=== PATIENT | female | born 1985 | race Caucasian/White ===

== ENCOUNTER 2018-06-02 04:56 | Inpatient (IN) | payer BC ==
[2018-06-02] MEDS: DEXTROSE 5%-LACTATED RINGERS 1,000 ML IV SCH (06:00)
[2018-06-02] MEDS ORDERED: AMPICILLIN - 2 GM in SODIUM CHLORIDE 100 ML IVPB ONE (06:00)
[2018-06-02 06:33] VITALS: BMI 30.4
[2018-06-02 06:41] LABS: BASO % 0.3 % (0-2.0); EOS % 1.9 % (0-4.5); HEMOGLOBIN 10.6 GM/dL (10.7-15.3); LYMPH % 20.2 % (8-40); MCH 25.3 pg (25.7-33.7); MCHC 33.2 g/dl (32.0-36.0); MEAN CELL VOLUME 76.1 fl (80-96); MEAN PLT VOLUME 9.5 fl (7.5-11.1); MONO % 7.1 % (3.8-10.2); NEUT % 70.5 % (42.8-82.8); PLATELET COUNT 257 K/MM3 (134-434); RBC 4.21 M/mm3 (3.60-5.2); RDW 15.4 % (11.6-15.6); WHITE BLOOD COUNT 9.7 K/mm3 (4.0-10.0)
[2018-06-02] MEDS ORDERED: BUTORPHANOL TARTRATE 1 MG/ML VIAL IVPUSH PRN (06:47)
[2018-06-02] MEDS ORDERED: PROMETHAZINE HCL 25 MG/1 ML VIAL IVPUSH PRN (06:48)
[2018-06-02 06:56] LABS: INR 1.03 (0.83-1.09); PROTHROMBIN TIME (PATIENT) 12.1 SEC (9.7-13.0)
[2018-06-02 06:58] LABS: ACTIVATED PTT 26.1 SECONDS (25.2-36.5)
[2018-06-02 07:01] LABS: ANION GAP 8 MMOL/L (8-16); BLOOD UREA NITROGEN 9 mg/dL (7-18); CALCIUM 8.4 mg/dL (8.5-10.1); CHLORIDE 104 mmol/L (98-107); CO2 24 mmol/L (21-32); CREATININE 0.6 mg/dL (0.55-1.3); GLUCOSE,RANDOM 74 mg/dL (74-106); POTASSIUM 4.1 mmol/L (3.5-5.1); SODIUM 137 mmol/L (136-145)
[2018-06-02] MEDS ORDERED: NALOXONE HCL 0.4 MG/ML VIAL IVPUSH PRN (07:49)
--- NOTE | 2018-06-02 07:49 | HP ---
Past Medical History - Primary Care Physician PCP:: Zhang Amaya - Admission Chief Complaint: 38.6 weeks, rom, labor History of Present Illness: 32 yo f ,38.6 weeks, c/o rom since 4 am today , has contraction since 5 am , cx 3 cm, 80 vx . -1 , mr Baldo jay , fhr cat 1, contraction irregular History Source: Patient Limitations to Obtaining History: No Limitations - Past Medical History ...: 3 ...Para: 1 ...Term: 1 ...: 0 ...Spon : 0 ...Induced : 1 ...LMP: 09/03/17 ... Weeks Gestation by Dates: 38.6 ...EDC by Dates: 06/10/18 ...EDC by Sono: 06/12/18 - Past Surgical History Hx Myomectomy: No Hx Transabdominal Cerclage: No - Smoking History Smoking history: Never smoked - Alcohol/Substance Use Hx Alcohol Use: No - Social History Usual Living Arrangement: Yes: With Spouse History of Recent Travel: No Home Medications - Allergies Allergies/Adverse Reactions: Allergies Allergy/AdvReac Type Severity Reaction Status Date / Time No Known Allergies Allergy Verified 06/02/18 06:16 - Home Medications Home Medications: Ambulatory Orders Vitamins (Sjr) - 1 tab PO DAILY 06/02/18 Review of Systems - Review of Systems Constitutional: reports: No Symptoms Eyes: reports: No Symptoms HENT: reports: No Symptoms Neck: reports: No Symptoms Cardiovascular: reports: No Symptoms Respiratory: reports: No Symptoms Gastrointestinal: reports: No Symptoms Genitourinary: reports: No Symptoms Breasts: reports: No Symptoms Reported Musculoskeletal: reports: No Symptoms Integumentary: reports: No Symptoms Neurological: reports: No Symptoms Endocrine: reports: No Symptoms Hematology/Lymphatic: reports: No Symptoms Psychiatric: reports: No Symptoms Physical Exam - Maternity Vital Signs: Vital Signs Temperature 97.8 F 06/02/18 07:00 Pulse Rate 89 06/02/18 07:00 Respiratory Rate 20 06/02/18 07:00 Blood Pressure 112/68 06/02/18 07:00 O2 Sat by Pulse Oximetry (%) Constitutional: Yes: Well Nourished, No Distress, Calm Eyes: Yes: WNL, Conjunctiva Clear, EOM Intact HENT: Yes: WNL, Atraumatic, Normocephalic Neck: Yes: WNL, Supple, Trachea Midline Cardiovascular: Yes: WNL, Regular Rate and Rhythm Breast(s): Yes: WNL - Abdominal Exam/OB Fundal Height: 38 Number of Fetuses: Single Presentation: Vertex Contractions: Yes Regularity: Irregular Intensity: Mod/Strong Monitor Mode: External Heart Rate Location: [facility] Category: I Accelerations: Uniform Decelerations: None - Vaginal Exam/OB Vaginal Bleediing: No Speculum Exam: No Dilatation (cm): 3 cm Effacement (%): 80 Amniotic Membrane Status: Ruptured Nitrazine Test: Positive Presentation: Vertex/Position Station: -1 - Physical Exam Musculoskeletal: Yes: WNL Extremities: Yes: WNL Edema: Yes Edema: LLE: Trace, RLE: Trace Deep Tendon Reflex Grade: Normal +2 ...Motor Strength: WNL - Labs Lab Results: CBC, BMP 06/02/18 05:50 06/02/18 05:50 Hemorrhage Risk Assessment - Risk Factors Medium Risk Factors: Yes: None High Risk Factors: Yes: None Risk Score: 1 Risk Level: Medium Risk Problem List - Problems (1) with 38 completed weeks gestation Code(s): Z3A.38 - 38 WEEKS GESTATION OF (2) Labor established Code(s): QYQ7930 - (3) membrane rupture Code(s): [id number] - Assessment/Plan admit , fhm, pain management , GBS negative anticipate vaginal delivery
[2018-06-02] MEDS ORDERED: FENTANYL/BUPIVACAINE/NS/PF - PCEA - 50 ML DISP.SYRIN EP SCH (08:00)
[2018-06-02] MEDS ORDERED: FENTANYL/BUPIVACAINE/NS/PF - PCEA - 50 ML DISP.SYRIN EP ONE (08:05)
[2018-06-02] MEDS ORDERED: OXYTOCIN 10 UNITS/ML VIAL ONE (08:42)
[2018-06-02] MEDS ORDERED: OXYTOCIN 20 UNITS in 0.9% NS 20 UNIT/1,000 ML INFUS.BAG IV ONE ×4 (08:55→15:11)
[2018-06-02] MEDS ORDERED: LIDO 2%/EPI 1:200000 PRESRVFRE (20 ML SDVIAL) ONE (09:58)
[2018-06-02] MEDS: ELECTROLYTE-148 SOLN 1,000 ML IV SCH (10:00)
[2018-06-02] MEDS ORDERED: TUBERCULIN PPD 5 TU/0.1ML SYRINGE (IN PATIENT USE ONLY) ID ONE (10:00)
[2018-06-02] MEDS: AMPICILLIN - 1 GM in SODIUM CHLORIDE 100 ML IVPB SCH ×2 (10:00→15:17)
[2018-06-02] MEDS: OXYTOCIN 30 UNITS in 0.9% NS 30 UNIT/500 ML INFUS.BAG IVPB SCH (10:15)
[2018-06-02] MEDS: OXYTOCIN 20 UNITS in 0.9% NS 20 UNIT/1,000 ML INFUS.BAG IV SCH (12:55)
[2018-06-02] MEDS ORDERED: WITCH HAZEL 50% (TUCKS) 40 PAD/JAR PAD TP PRN (12:58)
[2018-06-02] MEDS ORDERED: METHYLERGONOVINE MALEATE 0.2 MG/1 ML AMP IM PRN (12:58)
[2018-06-02] MEDS ORDERED: BENZOCAINE 28 GM HEMORRHOIDAL OINTMENT TP PRN (12:58)
[2018-06-02] MEDS ORDERED: BISACODYL 10 MG SUPP.RECT RC PRN (12:58)
[2018-06-02] MEDS ORDERED: BENZOCAINE 20% 57 GM BOTTLE TP PRN (12:58)
--- NOTE | 2018-06-02 13:39 | PN ---
Delivery - Delivery Vaginal Delivery: No Problems, Spontaneous Type of Anesthesia: Epidural Episiotomy/Laceration: None EBL (cc): 300 Delivery, Single - Stages of Labor Date 1st Stage Initiatied: 06/02/18 Time 1st Stage Initiated: 04:00 Date 2nd Stage Initiated: 06/02/18 Time 2nd Stage Initiated: 12:20 Date of Delivery: 06/02/18 Time of Delivery: 12:49 Date Placenta Delivered: 06/02/18 Time Placenta Delivered: 12:52 Placenta: Yes: Spontaneous, Normal Configuration - Condition of Infant Area Supervisor/Truck Sales Manager Present: No Gender: Male Position: Left, OA Total Hours ROM (Hrs/Mins): 8H5M - 1 Minute Total Score: 9 5 Minutes Total Score: 9 - [place] Feeding Plan Initial Plan: Exclusive throughout hospitalization Benefits of Exclusively reinforced: Yes
[2018-06-02] MEDS: IBUPROFEN 600 MG TABLET (FP) PO PRN ×2 (16:17→20:46)
[2018-06-02] MEDS: ACETAMINOPHEN 325 MG TABLET (FP) PO PRN ×2 (16:20→20:46)
[2018-06-03 07:42] LABS: BASO % 0.5 % (0-2.0); HEMATOCRIT 25.1 % (32.4-45.2); HEMOGLOBIN 8.4 GM/dL (10.7-15.3); LYMPH % 20.8 % (8-40); MCH 25.5 pg (25.7-33.7); MCHC 33.3 g/dl (32.0-36.0); MEAN CELL VOLUME 76.6 fl (80-96); MEAN PLT VOLUME 9.5 fl (7.5-11.1); MONO % 9.2 % (3.8-10.2); NEUT % 67.5 % (42.8-82.8); PLATELET COUNT 186 K/MM3 (134-434); RBC 3.28 M/mm3 (3.60-5.2); RDW 15.6 % (11.6-15.6); WHITE BLOOD COUNT 12.7 K/mm3 (4.0-10.0)
[2018-06-03] MEDS ORDERED: PRENATAL VITAMINS W/ FOLIC ACID TABLET (FP) PO SCH (10:00)
--- NOTE | 2018-06-03 10:56 | PN ---
Progress Note (short form) - Note Progress Note: ppd 1 no c/o , voids ok, no dizziness , no excess vaginal bleeding CBC, BMP 06/03/18 06:00 06/02/18 05:50 Last Vital Signs Temp Pulse Resp BP Pulse Ox 98.3 F 83 20 109/66 98 06/03/18 09:32 06/03/18 09:32 06/03/18 09:32 06/03/18 09:32 06/02/18 12:00 abdomen soft, no distension , no cva uterus firm, non tender lochia mild no calf tenderness impression anemia , asymptomatic plan iron, vit plan for d/c home in am Problem List - Problems (1) with 38 completed weeks gestation Code(s): Z3A.38 - 38 WEEKS GESTATION OF (2) Labor established Code(s): [id number] - (3) membrane rupture Code(s): NYW5975 -
[2018-06-03] MEDS: PRENATAL VITAMINS W/ FOLIC ACID TABLET (FP) PO SCH (11:07)
[2018-06-03] MEDS: ACETAMINOPHEN 325 MG TABLET (FP) PO PRN ×2 (14:16→21:00)
[2018-06-03] MEDS: IBUPROFEN 600 MG TABLET (FP) PO PRN ×2 (14:17→21:00)
[2018-06-03] MEDS: OXYTOCIN 20 UNITS in 0.9% NS 20 UNIT/1,000 ML INFUS.BAG IV SCH (20:37)
[2018-06-03] MEDS: OXYTOCIN 30 UNITS in 0.9% NS 30 UNIT/500 ML INFUS.BAG IVPB SCH (20:37)
[2018-06-03] MEDS: DEXTROSE 5%-LACTATED RINGERS 1,000 ML IV SCH (20:37)
[2018-06-03] MEDS: ELECTROLYTE-148 SOLN 1,000 ML IV SCH (20:37)
[2018-06-03] MEDS ORDERED: SENNOSIDES/DOCUSATE COMBO (SENNA PLUS) TABLET (UD) PO PRN (22:00)
[2018-06-04] MEDS: ACETAMINOPHEN 325 MG TABLET (FP) PO PRN (06:48)
[2018-06-04] MEDS: IBUPROFEN 600 MG TABLET (FP) PO PRN (06:49)
[2018-06-04 08:57] VITALS: BP 111/63; PULSE 87; TEMP 98.1
--- NOTE | 2018-06-04 09:00 | DS ---
Physical Exam-[employer] DIVISION SUPERVISOR Vital Signs: Vital Signs Temperature 98.1 F 06/04/18 08:56 Pulse Rate 87 06/04/18 08:56 Respiratory Rate 20 06/04/18 08:56 Blood Pressure 111/63 06/04/18 08:56 O2 Sat by Pulse Oximetry (%) 98 06/02/18 12:00 Constitutional: Yes: Well Nourished, No Distress, Calm Eyes: Yes: WNL, Conjunctiva Clear, EOM Intact HENT: Yes: WNL, Atraumatic, Normocephalic Neck: Yes: WNL, Supple, Trachea Midline Cardiovascular: Yes: WNL, Regular Rate and Rhythm Respiratory: Yes: WNL, Regular, CTA Bilaterally Gastrointestinal: Yes: WNL ...Rectal Exam: Yes: WNL Renal/: Yes: WNL ....Post : Yes: Uterus firm, Uterus non-tender, Slight lochia rubra Breast(s): Yes: WNL Musculoskeletal: Yes: WNL Extremities: Yes: WNL Edema: No Integumentary: Yes: WNL Neurological: Yes: WNL, Alert, Oriented ...Motor Strength: WNL Psychiatric: Yes: WNL, Alert, Oriented Labs: CBC, BMP 06/03/18 06:00 06/02/18 05:50 Delivery - Delivery Vaginal Delivery: No Problems, Spontaneous Type of Anesthesia: Epidural Episiotomy/Laceration: None EBL (cc): 300 Delivery, Single - Stages of Labor Date 1st Stage Initiatied: 06/02/18 Time 1st Stage Initiated: 04:00 Date 2nd Stage Initiated: 06/02/18 Time 2nd Stage Initiated: 12:20 Date of Delivery: 06/02/18 Time of Delivery: 12:49 Time Placenta Delivered: 12:52 Placenta: Yes: Spontaneous, Normal Configuration - Condition of Infant Advertising Supervisor/Biomedical Scientist Present: No Gender: Male Weight: 7 lb 10 oz Position: Left, OA Total Hours ROM (Hrs/Mins): 8H5M - 1 Minute Total Score: 9 5 Minutes Total Score: 9 - [place] Feeding Plan Initial Plan: Exclusive throughout hospitalization Benefits of Exclusively reinforced: Yes Discharge Summary Reason For Visit: LABOR ADMIT Current Active Problems membrane rupture (Acute) Labor established (Acute) with 38 completed weeks gestation (Acute) Procedures: Principal: Condition: Good - Instructions Diet, Activity, Other Instructions: regular diet, no intercourse, follow up office 4 weeks, if fever, pain, heavy vaginal bleeding call md gonzalez pnv, iron Referrals: Joni Garcia MD [Staff Physician] - Disposition: HOME - Home Medications Comprehensive Discharge Medication List: Ambulatory Orders Vitamins (Sjr) - 1 tab PO DAILY 06/02/18 Ibuprofen [Motrin -] 600 mg PO QID #28 tablet 06/03/18
[2018-06-04] MEDS: PRENATAL VITAMINS W/ FOLIC ACID TABLET (FP) PO SCH (09:40)
== END 2018-06-04 13:05 | disposition home or self-care (01) | DRG 807 ==
LOC: JLDR 04:56 → J3W 14:57
PROVIDERS: ADMIT Obstetrics & Gynecology; ATTEND Obstetrics & Gynecology
PROC: 10E0XZZ Delivery of Products of Conception, External Approach (ICD-10-PCS; principal; 2018-06-02)
DX: O99.824 Streptococcus B carrier state complicating childbirth (principal); Z37.0 Single live birth; Z3A.38 38 weeks gestation of pregnancy
CPT/HCPCS: 36415; 59409; 80048; 85025; 85610; 85730; 86593; 86850; 86900; 86901; 87389

== ENCOUNTER 2021-11-04 17:00 | Inpatient (IN) | payer BC ==
[2021-11-04] MEDS ORDERED: OXYTOCIN 30 UNITS in 0.9% NS 30 UNIT/500 ML INFUS.BAG IVPB SCH (19:00)
[2021-11-04] MEDS ORDERED: AMPICILLIN - 2 GM in SODIUM CHLORIDE 100 ML IVPB ONE (19:00)
[2021-11-04] MEDS: ELECTROLYTE-148 SOLN 1,000 ML IV SCH (19:15)
[2021-11-04] MEDS ORDERED: AMPICILLIN SODIUM 2 GM VIAL ONE (19:18)
[2021-11-04] MEDS ORDERED: OXYTOCIN 30 UNITS in 0.9% NS 30 UNIT/500 ML INFUS.BAG IVPB ONE (19:18)
[2021-11-04 20:05] LABS: BASO % 0.2 % (0-2.0); EOS % 2.4 % (0-4.5); HEMATOCRIT 36.7 % (32.4-45.2); HEMOGLOBIN 11.9 GM/dL (10.7-15.3); LYMPH % 15.5 % (8-40); MCH 25.9 pg (25.7-33.7); MCHC 32.4 g/dl (32.0-36.0); MEAN PLT VOLUME 9.4 fl (7.5-11.1); MONO % 8.9 % (3.8-10.2); PLATELET COUNT 269 10^3/uL (134-434); RBC 4.59 M/mm3 (3.60-5.2); RDW 15.9 % (11.6-15.6); WHITE BLOOD COUNT 13.3 K/mm3 (4.0-10.0)
[2021-11-04 20:12] LABS: INR 1.05 (0.83-1.09); PROTHROMBIN TIME (PATIENT) 12.1 SEC (9.7-13.0)
[2021-11-04 20:30] LABS: CALCIUM 8.5 mg/dL (8.5-10.1)
[2021-11-04 20:31] LABS: BLOOD UREA NITROGEN 5.9 mg/dL (7-18)
[2021-11-04 20:34] LABS: CREATININE 0.4 mg/dL (0.55-1.3)
[2021-11-04] MEDS ORDERED: FENTANYL/BUPIVACAINE/NS/PF - PCEA - 50 ML DISP.SYRIN EP ONE (20:51)
[2021-11-04 21:15] VITALS: BMI 32.8
[2021-11-04] MEDS ORDERED: NALOXONE HCL 0.4 MG/ML VIAL IVPUSH PRN (23:37)
[2021-11-04] MEDS: AMPICILLIN - 1 GM in SODIUM CHLORIDE 100 ML IVPB SCH (23:40)
[2021-11-04] MEDS ORDERED: FENTANYL/BUPIVACAINE/NS/PF - PCEA - 50 ML DISP.SYRIN EP SCH (23:45)
[2021-11-04] MEDS ORDERED: AMPICILLIN SODIUM 1 GM VIAL ONE (23:49)
[2021-11-05] MEDS: ELECTROLYTE-148 SOLN 1,000 ML IV SCH
[2021-11-05] MEDS ORDERED: AMPICILLIN SODIUM 1 GM VIAL ONE (03:07)
[2021-11-05] MEDS ORDERED: OXYTOCIN 20 UNITS in 0.9% NS 20 UNIT/1,000 ML INFUS.BAG IV ONE (03:09)
[2021-11-05] MEDS: AMPICILLIN - 1 GM in SODIUM CHLORIDE 100 ML IVPB SCH (03:10)
[2021-11-05] MEDS ORDERED: FENTANYL/BUPIVACAINE/NS/PF - PCEA - 50 ML DISP.SYRIN EP ONE (03:25)
[2021-11-05] MEDS ORDERED: oxyCODONE HCL 5 MG TABLET PO PRN (04:06)
[2021-11-05] MEDS ORDERED: BISACODYL 10 MG SUPP.RECT RC PRN (04:06)
[2021-11-05] MEDS ORDERED: BENZOCAINE 20% 57 GM BOTTLE TP PRN (04:06)
[2021-11-05] MEDS ORDERED: METHYLERGONOVINE MALEATE 0.2 MG/1 ML AMP IM PRN (04:06)
[2021-11-05] MEDS ORDERED: WITCH HAZEL 50% (TUCKS) 40 PAD/JAR PAD TP PRN (04:06)
[2021-11-05] MEDS ORDERED: ACETAMINOPHEN 325 MG TABLET (FP) PO PRN (04:06)
[2021-11-05] MEDS ORDERED: BENZOCAINE 28 GM HEMORRHOIDAL OINTMENT TP PRN (04:06)
[2021-11-05] MEDS ORDERED: OXYTOCIN 20 UNITS in 0.9% NS 20 UNIT/1,000 ML INFUS.BAG IV SCH (04:15)
[2021-11-05 04:34] LABS: CORD BASE EXCESS -2.9 mmol/L (0-2); CORD HCO3 27.3 mmHg (20-29); CORD PCO2 71.5 mmHg (30-78); CORD pH 7.199 (7.14-7.44)
[2021-11-05 04:37] LABS: CORD BASE EXCESS -1.1 mmol/L (0-2); CORD PCO2 37.1 mmHg (30-78); CORD pH 7.411 (7.14-7.44)
[2021-11-05] MEDS: IBUPROFEN 600 MG TABLET (FP) PO PRN ×3 (05:30→23:44)
[2021-11-05] MEDS ORDERED: IBUPROFEN 600 MG TABLET (FP) PO ONE (05:30)
[2021-11-05] MEDS: PRENATAL VITAMINS W/ FOLIC ACID TABLET (FP) PO SCH (10:11)
[2021-11-06 08:29] LABS: BASO % 0.3 % (0-2.0); EOS % 3.1 % (0-4.5); HEMATOCRIT 32.8 % (32.4-45.2); HEMOGLOBIN 10.7 GM/dL (10.7-15.3); MCHC 32.5 g/dl (32.0-36.0); MEAN PLT VOLUME 8.8 fl (7.5-11.1); MONO % 8.5 % (3.8-10.2); NEUT % 64.1 % (42.8-82.8); PLATELET COUNT 244 10^3/uL (134-434); RDW 16.1 % (11.6-15.6); WHITE BLOOD COUNT 12.6 K/mm3 (4.0-10.0)
[2021-11-06] MEDS: PRENATAL VITAMINS W/ FOLIC ACID TABLET (FP) PO SCH (09:58)
[2021-11-06] MEDS: IBUPROFEN 600 MG TABLET (FP) PO PRN (11:29)
[2021-11-06] MEDS ORDERED: SENNOSIDES/DOCUSATE COMBO (SENNA PLUS) TABLET (UD) PO PRN (22:00)
[2021-11-07] MEDS: IBUPROFEN 600 MG TABLET (FP) PO PRN ×2 (01:39→09:38)
[2021-11-07] MEDS: PRENATAL VITAMINS W/ FOLIC ACID TABLET (FP) PO SCH (09:15)
[2021-11-07 10:13] VITALS: BP 98/65; PULSE 75; TEMP 98.2
== END 2021-11-07 19:00 | disposition home or self-care (01) | DRG 807 ==
LOC: JDEL 17:00 → JLDR 18:45 → J3W 11-05 05:35
PROVIDERS: ADMIT Obstetrics & Gynecology; ATTEND Obstetrics & Gynecology
PROC: 10E0XZZ Delivery of Products of Conception, External Approach (ICD-10-PCS; principal; 2021-11-05)
DX: O80 Encounter for full-term uncomplicated delivery (principal); Z37.0 Single live birth; Z3A.37 37 weeks gestation of pregnancy
CPT/HCPCS: 36415; 36600; 59409; 80048; 82803; 85025; 85610; 85730; 86780; 86850; 86900; 86901; C9803-CS; U0003; U0005